=== PATIENT | female | born 1975 | race African-American/Black ===

== ENCOUNTER 2019-03-04 08:45 | Day surgery (SDC) | payer OTHER ==
--- NOTE | 2019-03-03 21:34 | PDGENHP ---
History and Physical - Chief Complaint RIGHT HIP PAIN - History of Present Illness Diagnosis: 1. 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 Bilateral~Hip Dyplasia (RIGHT symptomatic) HISTORY OF PRESENT ILLNESS: Laylais a~43 y.o.~~~active~female~who I have had the pleasure to consult on today.~I have enjoyed meeting her.~Jaelyn~lives in [place].~~Laylaworks as a triage nurse.~~She~is ;~she~has 2~children (7 and 5 yo).~~Laylaenjoys travel, playing with her kids, visiting [place] [place], going to the gym. Marisa's~right~hip pain started 2 years, with~little~recalled trauma or injury~( increased her activity level, weight lifting with her education trainer), and with~little~previous complaints~(while ).~Laylahas~a known history of hip dysplasia -- diagnosed by Dr. Irving May 2018~and referred to us for further surgical treatment. Presentation today is of~posterior~right~hip pain deep inside, sometimes C- shaped. ~The hip~does~wake her~at night and~does not~click and catch on~her. Sitting~can be a real struggle~for her.~Layladoes~report suffering from lower back pain episodes very rarely.~ Laylahas~participated in physical therapy x 6-7 months in 2017~and~has~tried other conservative measures including hip~steroid~injections~(x2 or 3, given to her by Dr. Powell at [facility], gave her 50% relief for maybe 3 weeks maximum)~.~ She~has~received sufficient symptomatic improvement. Marisa~has~utilized medication for pain management, including NSAID~and Medrol taper.~Laylahas used medication intermittently since symptom onset and 3 steroid tapers.~ Layladenies issues with the left~hip, but does have L heel pain.~~ Laylaunderstands that~jaelyn~has a hip and pelvis problem which should be researched and wishes to get a better understanding of~her~hip status, followed by an establishment of a treatment strategy, hoping~jaelyn~would be able to get back to~her~well being active life. History: Past medical history:~~ Patient~~has no past medical history on file. Relevant familial history:~None which is relevant~ Past surgical history:~ No. Surgery Anesthesia Year Outcome 1 Myomectomy x3 General 2009 most recent Good 2 x2 Epidural 2013 most recent Good Marisa~denies problematic issues with general anesthesia in the past. I have reviewed, verified and agree with the past medical, surgical, family and social history. Current Medications:~currently has no medications in their medication list. ALLERGIES:~has no allergies on file. Objective: Physical Examination: Laylais 5~feet~2~inches tall and weighs~177.8~Lbs, BMI 32.5.~Laylais AAO x3; she~is well-nourished, in NAD. Skin is warm and dry. ~Breathing is non-labored. ~CV with RRR by pulse. Abdomen is soft, NTND. Currently,~she~walks with a~normal~gait. Trendelenburg sign is~negative~and proprioception~is reduced,~both~sides. She~presents~with mild~signs of joint laxity.~Beightons Score:~5 (knees, elbows , R pinky) Lower spine examination is~negative~for sciatic or femoral nerve irritation with negative~SLR &~femoral stretch tests. Range of motion of the spine is normal~for flexion, extension, and rotations,~with no~associated pain. Strength, Sensation and pulses are~normal -~bilaterally Ankles and knees exams are~normal~and~no~mal-alignment is evident.~ She~has~no leg length discrepancy. Thigh circumference is~symmetric~with no evidence for muscle atrophy~on both~ sides. Hip ROM (degrees):~Apprehension due to pain FL ER At 90~hip FL IR At 90~hip FL AB AD EX IR Neutral hip ER Neutral hip R 95 25(pain) 40(pain) 30 5 5 45 35 L 95 30(apprehension) 35 (apprehension) 35 5 5 45 10 Specific hip and pelvis tests: Impingement Test MAZIN Roll Add. Longus R +++ +++ Negative Negative L Negative ++ Negative Negative Glut. Med ITB Posterior Imp R +++ 5/5 strength +++ 5/5 strength Negative L Negative 5/5 strength Negative 5/5 strength Negative Squeeze test measured~strong Bony Symphysis pubis is~painful~to touch while concentric activity of the rectus abdominis, does not~produce pain at its insertion. Ilio Psos specific tests are~positive for pain during cycling for~the right hip~ and remarkable for painful catch HF has~pain~both hips. Lateral, posterior~capsule tenderness R side Greater trochanteric burse is~pain free~on both hips. Piriformis tests: FAIR is~negative,~with no~local signs of neuritis related to sciatic nerve. SIJs examination is~normal~with~normal~MAZIN in relation and local tenderness. Hamstrings tests are~negative~tendinopathy both hips. On a daily basis, the following percentages reflect~Marisa's overall total pain: Deep hip:~100% Imaging: Radiology studies which I~have personally reviewed, analyzed and measured are below: XR: AP of the hip and pelvis: Performed in a~good~technique Coccyx to pubic symphysis distance~2.5~cm. 15~degrees caudal [place]~Lines are preserved. Minimal~Pathological signs are seen in the Symphysis Pubis.~ Minimal~Pathological signs are seen at the Ischial~tuberosity. ~ Specific measurements show:~ 0 deg WB (15 deg corrected) - L side measurements on 15 deg corrected obscured by hand/soft tissue NSA~ LCE Sourcil~Angle Sharp's angle Lat. Cam Lat. Pincer C.Over~sign Head~Coverage % ATDmm R 128 15(21) 13(9) 45(45) Neg Neg Neg 66% 18.9 L 133 17(20) 7(6) 43(45) Neg Neg Neg 69% 19.3 Pos. wall sign ISS NAD ~~Dysplasia Comments R Negative Negative 26.0~mm ++ L Negative Negative 26.6~mm ++ Sclerosis Sup. Lat. OA Cysts Joint Space-WBZ Joint Space-Medial R Negative Negative Negative 4.9~mm 3.5~mm L Negative Negative Negative 4.4~mm 3.6~mm X Table lateral: Anterior cam lesion is~seen~on both hips. Alpha Angle: ~ Right~62~degrees Left~63~degrees CT / 3D: 07/25/18 -~ Right hip: Lateral center edge angle: 23 degrees Anterior center edge angle: 55 degrees Equatorial acetabular version angle: 33 degrees Anteverted. Cranial acetabular version angle: 9 degrees Anteverted. Femoral neck shaft angle: 135 degrees Femoral neck version angle: 5 degrees retroverted Femoral shaft torsion angle: 17 degrees (medial/internal rotation) Left hip: Lateral center edge angle: 28 degrees Anterior center edge angle: 49 degrees Equatorial acetabular version angle: 33 degrees Anteverted. Cranial acetabular version angle: 16 degrees Anteverted. Femoral neck shaft angle: 136 degrees Femoral neck version angle: 9 degrees retroverted Femoral shaft torsion angle: 24 degrees (medial/internal rotation) Impression and plan:~ Marisa~is a~43 y.o.~active female~suffering from~Bilateral~Hip Dyplasia (RIGHT symptomatic)~and~Femoroacetabular impingement (KIM)~Cam type~causing significant disability to~her~and altering~her~sport and life activities. Physical examination, imaging, and~her~story correspond with the diagnosis mentioned above. I explained that hip dysplasia is a condition wherein the hip joint has excessive play~and instability due to a variety of factors, including the depth and adequacy of the socket, the orientation of the femur bone, and ligament laxity around the hip joint. Dysplasia ranges in severity from borderline to alexsander, with treatment options being specific to the specific nature of the problem. Left untreated, the instability in the hip joint can cause progressive tearing of the labrum and deterioration of the surface cartilage, ultimately resulting in progressive osteoarthritis of the hip. I explained that femoroacetabular impingement (KIM - Cam type) arises due to a bony or soft tissue conflict between the femur (ball) and acetabulum (socket) caused by an abnormality in the shape of the femoral head and neck. Over time, repetitive impingement can result in damage to the labrum and adjacent surface cartilage within the socket, ultimately giving rise to progressive osteoarthritis of the hip. I explained that although a labral tear can be a source of pain, it is rarely the root of the problem and typically occurs secondary to an underlying abnormality in the shape and mechanics of the hip joint. I reviewed conservative treatment options for Dysplasia and KIM including activity modification to avoid positions of impingement or instability, physical therapy, non-steroidal anti-inflammatory medications, and various injections (corticosteroid and PRP) aimed at reducing inflammation in the hip joint or/and preventing dynamic instability and impingement. PRP injections may promote healing and reduce symptoms in certain cases but it will not repair chronically damaged tissue. Although these measures may help to buy time~and reduce current level of symptoms, they are not a definitive solution to the problem given the underlying abnormality in the shape of the hip joint. Patients who have failed conservative management and continue to experience symptoms are candidates for definitive surgical treatment, which may consist of hip arthroscopy alone or in combination with more invasive bony realignment procedures of the hip socket and/or femur called periacetabular osteotomy (STEVEN) or derotational femoral osteotomy (DFO). Hip arthroscopy typically includes treating the labrum with either repair or reconstruction of the torn labrum; as well as addressing the underlying abnormalities by restoring the normal shape to the hip joint. If the cartilage is damaged a Microfracture surgical procedure may also be necessary to help stimulate the growth of fibrocartilage. If a patient requires a labral reconstruction or a Microfracture, the initial rehabilitation from the surgery may take longer, but the development technician results are typically favorable. I reviewed the technical aspects of periacetabular osteotomy (STEVEN) including risks, benefits, and expected course of recovery. Marisa understands that STEVEN is an inpatient procedure carried out through two medium sized incisions on the front and back of the hip joint. The hip socket is cut, realigned, and stabilized with 2 3 internal screws. Risks include infection, bleeding, injury to nearby nerves or vessels, stiffness, persistent pain, instability, failure of bony healing, implant related complications, and venous thromboembolic disease. Rarely, revision surgery may be required to address these problems. Risks, potential complications, side effects and recovery from surgical procedure were discussed in length. We explained how this surgery is an open procedure, and though patients tend to do well in the long-term, it involves significant pain in the first 2-4 weeks post-op and a rather lengthy rehab. Overall recovery takes approximately 6 12 months depending on the extent of damage and degree of repair. Marisa understands that she will undergo hip arthroscopy 1 week prior to the STEVEN to address damage inside the hip joint. Marisa understands that hip arthroscopy and STEVEN are two separate procedures that are best performed one week apart, with the arthroscopy commencing first to "tighten up" any pathology evident in the hip joint (labral repair, etc.) and the STEVEN open procedure occurring 7-10 days later to realign the acetabulum. We also discussed the possibility of THR as a pain relieving procedure with an easier recovery.~Considering her age and activity level THR can be a valid and very suitable option. After a long discussion Marisa say she~prefers~to avoid hip replacement due to her age and desired activity level, as well as the number of revisions that may be necessary in her lifetime. Marisa~will review the info presented. Marisa will bring her MRIs to the [facility] to be uploaded to our system~ so that we can review the health of her hip joint and confirm our surgical plan of scope/STEVEN is appropriate. Marisa~will talk with our vp integrity about possible surgery dates. Marisa~is happy with this plan. I have also supplied~her~with handouts, outlining the expected surgical treatment and rehab involved. I wish~Laylaall the best, ~~ Loraine Rivera MD History Information - Allergies/Home Medication List Allergies/Adverse Reactions: No Known Allergies Allergy (Verified 02/24/19 11:38) Home Medications: NK [No Known Home Meds] 02/24/19 [Last Taken Unknown] I have personally reviewed and updated: medical history - Social History Smoking Status: Never smoked Review of Systems Review of Systems: Physical Exam Physical Exam:
[2019-03-04] MEDS ORDERED: ceFAZolin 2 GM/DEXTROSE 100 ML IV ONE (09:02)
[2019-03-04] MEDS ORDERED: PREGABALIN 150 MG CAP PO ONE (09:02)
[2019-03-04] MEDS ORDERED: ACETAMINOPHEN 500 MG TAB PO ONE (09:02)
[2019-03-04] MEDS ORDERED: LR 1,000 ML IV ONE (09:03)
[2019-03-04] MEDS ORDERED: BUPIVACAINE/EPI 0.25% 30 ML SDV ONE (09:57)
[2019-03-04] MEDS ORDERED: EPINEPHrine 30 MG/30 ML MDV (0.1 MG/0.1 ML) ONE (09:57)
--- NOTE | 2019-03-04 10:15 | PDANEPAE ---
ANE Past Medical History - Cardiovascular History Hx Hypertension: No Hx Arrhythmias: No Hx Chest Pain: No Hx Coronary Artery / Peripheral Vascular Disease: No Hx CHF / Valvular Disease: No Hx Palpitations: No Cardiovascular History Comment: hx of rheumatic heart disease - Pulmonary History Hx COPD: No Hx Asthma/Reactive Airway Disease: No Hx Recent Upper Respiratory Infection: No Hx Oxygen in Use at Home: No Hx Sleep Apnea: No Sleep Apnea Screening Result - Last Documented: Negative - Neurologic History Hx Cerebrovascular Accident: No Hx Seizures: No Hx Dementia: No - Endocrine History Hx Diabetes: No - Renal History Hx Renal Disorders: No - Liver History Hx Hepatic Disorders: No - Neurological & Psychiatric Hx Hx Neurological and Psychiatric Disorders: No - Cancer History Hx Cancer: No - Congenital Disorder History Hx Congenital Disorders: Yes Congenital History Comment: hip dysplasia - GI History Hx Gastrointestinal Disorders: No - Other Health History Other Health History: none - Chronic Pain History Chronic Pain: Yes (bilateral hips) - Surgical History Prior Surgeries: myomectomy x3. x2 ANE Review of Systems Review of Systems: - Exercise capacity METS (RN): 4 METS ANE Patient History - Allergies Allergies/Adverse Reactions: No Known Allergies Allergy (Verified 02/24/19 11:38) - Home Medications Home Medications: NK [No Known Home Meds] 02/24/19 [Last Taken Unknown] - NPO status NPO Since - Liquids (Date): 03/03/19 NPO Since - Liquids (Time): 23:00 NPO Since - Solids (Date): 03/03/19 NPO Since - Solids (Time): 23:00 - Smoking Hx Smoking Status: Never smoked - Family Anes Hx Family Hx Anesthesia Complications: none ANE Labs/Vital Signs - Vital Signs Blood Pressure: 116/72 Heart Rate: 56 Respiratory Rate: 16 O2 Sat (%): 98 Height: 158.75 cm Weight: 76.657 kg ANE Physical Exam - Airway Mallampati Score: Class 1 - ASA Status ASA Status: I ANE Anesthesia Plan Anesthesia Plan: general endotracheal anesthesia, GA w LMA
[2019-03-04] MEDS ORDERED: MIDAZOLAM 2 MG/2 ML VIAL ONE (10:27)
[2019-03-04] MEDS ORDERED: fentaNYL 100 MCG/2 ML INJ ONE ×2 (10:27→15:31)
[2019-03-04] MEDS ORDERED: PROPOFOL 200 MG/20 ML VIAL ONE (10:28)
[2019-03-04] MEDS ORDERED: METOCLOPRAMIDE 10 MG/2 ML VIAL ONE (10:28)
[2019-03-04] MEDS ORDERED: ONDANSETRON 4 MG/2 ML VIAL ONE (10:28)
[2019-03-04] MEDS ORDERED: LIDOCAINE 2% JELLY 6 ML TOPICAL SYR ONE (11:54)
[2019-03-04] MEDS ORDERED: LR 500 ML IV PRN (15:17)
[2019-03-04] MEDS ORDERED: NALOXONE HCL 0.4 MG/ML INJ IVP PRN (15:17)
[2019-03-04] MEDS ORDERED: ACETAMINOPHEN 500 MG TAB PO PRN (15:17)
[2019-03-04] MEDS ORDERED: MEPERIDINE 25 MG/0.5 ML AMP IVP PRN (15:17)
[2019-03-04] MEDS ORDERED: fentaNYL 100 MCG/2 ML INJ IVP PRN (15:17)
--- NOTE | 2019-03-04 15:19 | POSTANESTH ---
Post Anesthetic Evaluation Cardiovascular Status: Normal, Stable Respiratory Status: Normal, Stable Level of Consciousness/Mental Status: Can Participate in Eval Pain Control: Adequate, Prn Tx Ordered Nausea/Vomiting Control: Adequate, Prn Tx Ordered Complications Possibly Related to Anesthesia: None Noted
[2019-03-04 16:47] VITALS: BP 112/73
== END 2019-03-04 17:05 | disposition home or self-care (01) ==
LOC: FSGY 08:45
PROVIDERS: ATTEND Orthopaedic Surgery Sports Medicine
PROC: 0SQ94ZZ Repair Right Hip Joint, Percutaneous Endoscopic Approach (ICD-10-PCS; principal; 2019-03-04 10:15)
PROC: 0SB94ZZ Excision of Right Hip Joint, Percutaneous Endoscopic Approach (ICD-10-PCS; principal; 2019-03-04 10:15)
DX: M25.851 Other specified joint disorders, right hip (principal); Q65.89 Other specified congenital deformities of hip
CPT/HCPCS: C1713; J0171; J0690; J2250; J2405; J2704; J2765; J3010

== ENCOUNTER 2019-03-11 06:04 | Inpatient (IN) | payer OTHER ==
--- NOTE | 2019-03-10 21:19 | PDGENHP ---
History and Physical - Chief Complaint RIGHT HIP PAIN - History of Present Illness Diagnosis: 1. 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 Bilateral~Hip Dyplasia (RIGHT symptomatic) HISTORY OF PRESENT ILLNESS: Laylais a~43 y.o.~~~active~female~who I have had the pleasure to consult on today.~I have enjoyed meeting her.~Jaelyn~lives in [place].~~Laylaworks as a triage nurse.~~She~is ;~she~has 2~children (7 and 5 yo).~~Laylaenjoys travel, playing with her kids, visiting [place], going to the gym. Marisa's~right~hip pain started 2 years, with~little~recalled trauma or injury~( increased her activity level, weight lifting with her personal care worker), and with~little~previous complaints~(while ).~Laylahas~a known history of hip dysplasia -- diagnosed by Dr. Irving May 2018~and referred to us for further surgical treatment. Presentation today is of~posterior~right~hip pain deep inside, sometimes C- shaped. ~The hip~does~wake her~at night and~does not~click and catch on~her. Sitting~can be a real struggle~for her.~Layladoes~report suffering from lower back pain episodes very rarely.~ Laylahas~participated in physical therapy x 6-7 months in 2017~and~has~tried other conservative measures including hip~steroid~injections~(x2 or 3, given to her by Dr. Powell at [facility], gave her 50% relief for maybe 3 weeks maximum)~.~ She~has~received sufficient symptomatic improvement. Marisa~has~utilized medication for pain management, including NSAID~and Medrol taper.~Laylahas used medication intermittently since symptom onset and 3 steroid tapers.~ Layladenies issues with the left~hip, but does have L heel pain.~~ Laylaunderstands that~jaelyn~has a hip and pelvis problem which should be researched and wishes to get a better understanding of~her~hip status, followed by an establishment of a treatment strategy, hoping~jaelyn~would be able to get back to~her~well being active life. History: Past medical history:~~ Patient~~has no past medical history on file. Relevant familial history:~None which is relevant~ Past surgical history:~ No. Surgery Anesthesia Year Outcome 1 Myomectomy x3 General 2009 most recent Good 2 x2 Epidural 2013 most recent Good Marisa~denies problematic issues with general anesthesia in the past. I have reviewed, verified and agree with the past medical, surgical, family and social history. Current Medications:~currently has no medications in their medication list. ALLERGIES:~has no allergies on file. Objective: Physical Examination: Laylais 5~feet~2~inches tall and weighs~177.8~Lbs, BMI 32.5.~Laylais AAO x3; she~is well-nourished, in NAD. Skin is warm and dry. ~Breathing is non-labored. ~CV with RRR by pulse. Abdomen is soft, NTND. Currently,~she~walks with a~normal~gait. Trendelenburg sign is~negative~and proprioception~is reduced,~both~sides. She~presents~with mild~signs of joint laxity.~Beightons Score:~5 (knees, elbows , R pinky) Lower spine examination is~negative~for sciatic or femoral nerve irritation with negative~SLR &~femoral stretch tests. Range of motion of the spine is normal~for flexion, extension, and rotations,~with no~associated pain. Strength, Sensation and pulses are~normal -~bilaterally Ankles and knees exams are~normal~and~no~mal-alignment is evident.~ She~has~no leg length discrepancy. Thigh circumference is~symmetric~with no evidence for muscle atrophy~on both~ sides. Hip ROM (degrees):~Apprehension due to pain FL ER At 90~hip FL IR At 90~hip FL AB AD EX IR Neutral hip ER Neutral hip R 95 25(pain) 40(pain) 30 5 5 45 35 L 95 30(apprehension) 35 (apprehension) 35 5 5 45 10 Specific hip and pelvis tests: Impingement Test MAZIN Roll Add. Longus R +++ +++ Negative Negative L Negative ++ Negative Negative Glut. Med ITB Posterior Imp R +++ 5/5 strength +++ 5/5 strength Negative L Negative 5/5 strength Negative 5/5 strength Negative Squeeze test measured~strong Bony Symphysis pubis is~painful~to touch while concentric activity of the rectus abdominis, does not~produce pain at its insertion. Ilio Psos specific tests are~positive for pain during cycling for~the right hip~ and remarkable for painful catch HF has~pain~both hips. Lateral, posterior~capsule tenderness R side Greater trochanteric burse is~pain free~on both hips. Piriformis tests: FAIR is~negative,~with no~local signs of neuritis related to sciatic nerve. SIJs examination is~normal~with~normal~MAZIN in relation and local tenderness. Hamstrings tests are~negative~tendinopathy both hips. On a daily basis, the following percentages reflect~Marisa's overall total pain: Deep hip:~100% Imaging: Radiology studies which I~have personally reviewed, analyzed and measured are below: XR: AP of the hip and pelvis: Performed in a~good~technique Coccyx to pubic symphysis distance~2.5~cm. 15~degrees caudal [place]~Lines are preserved. Minimal~Pathological signs are seen in the Symphysis Pubis.~ Minimal~Pathological signs are seen at the Ischial~tuberosity. ~ Specific measurements show:~ 0 deg WB (15 deg corrected) - L side measurements on 15 deg corrected obscured by hand/soft tissue NSA~ LCE Sourcil~Angle Sharp's angle Lat. Cam Lat. Pincer C.Over~sign Head~Coverage % ATDmm R 128 15(21) 13(9) 45(45) Neg Neg Neg 66% 18.9 L 133 17(20) 7(6) 43(45) Neg Neg Neg 69% 19.3 Pos. wall sign ISS NAD ~~Dysplasia Comments R Negative Negative 26.0~mm ++ L Negative Negative 26.6~mm ++ Sclerosis Sup. Lat. OA Cysts Joint Space-WBZ Joint Space-Medial R Negative Negative Negative 4.9~mm 3.5~mm L Negative Negative Negative 4.4~mm 3.6~mm X Table lateral: Anterior cam lesion is~seen~on both hips. Alpha Angle: ~ Right~62~degrees Left~63~degrees CT / 3D: 07/25/18 -~ Right hip: Lateral center edge angle: 23 degrees Anterior center edge angle: 55 degrees Equatorial acetabular version angle: 33 degrees Anteverted. Cranial acetabular version angle: 9 degrees Anteverted. Femoral neck shaft angle: 135 degrees Femoral neck version angle: 5 degrees retroverted Femoral shaft torsion angle: 17 degrees (medial/internal rotation) Left hip: Lateral center edge angle: 28 degrees Anterior center edge angle: 49 degrees Equatorial acetabular version angle: 33 degrees Anteverted. Cranial acetabular version angle: 16 degrees Anteverted. Femoral neck shaft angle: 136 degrees Femoral neck version angle: 9 degrees retroverted Femoral shaft torsion angle: 24 degrees (medial/internal rotation) Impression and plan:~ Marisa~is a~43 y.o.~active female~suffering from~Bilateral~Hip Dyplasia (RIGHT symptomatic)~and~Femoroacetabular impingement (KIM)~Cam type~causing significant disability to~her~and altering~her~sport and life activities. Physical examination, imaging, and~her~story correspond with the diagnosis mentioned above. I explained that hip dysplasia is a condition wherein the hip joint has excessive play~and instability due to a variety of factors, including the depth and adequacy of the socket, the orientation of the femur bone, and ligament laxity around the hip joint. Dysplasia ranges in severity from borderline to alexsander, with treatment options being specific to the specific nature of the problem. Left untreated, the instability in the hip joint can cause progressive tearing of the labrum and deterioration of the surface cartilage, ultimately resulting in progressive osteoarthritis of the hip. I explained that femoroacetabular impingement (KIM - Cam type) arises due to a bony or soft tissue conflict between the femur (ball) and acetabulum (socket) caused by an abnormality in the shape of the femoral head and neck. Over time, repetitive impingement can result in damage to the labrum and adjacent surface cartilage within the socket, ultimately giving rise to progressive osteoarthritis of the hip. I explained that although a labral tear can be a source of pain, it is rarely the root of the problem and typically occurs secondary to an underlying abnormality in the shape and mechanics of the hip joint. I reviewed conservative treatment options for Dysplasia and KIM including activity modification to avoid positions of impingement or instability, physical therapy, non-steroidal anti-inflammatory medications, and various injections (corticosteroid and PRP) aimed at reducing inflammation in the hip joint or/and preventing dynamic instability and impingement. PRP injections may promote healing and reduce symptoms in certain cases but it will not repair chronically damaged tissue. Although these measures may help to buy time~and reduce current level of symptoms, they are not a definitive solution to the problem given the underlying abnormality in the shape of the hip joint. Patients who have failed conservative management and continue to experience symptoms are candidates for definitive surgical treatment, which may consist of hip arthroscopy alone or in combination with more invasive bony realignment procedures of the hip socket and/or femur called periacetabular osteotomy (STEVEN) or derotational femoral osteotomy (DFO). Hip arthroscopy typically includes treating the labrum with either repair or reconstruction of the torn labrum; as well as addressing the underlying abnormalities by restoring the normal shape to the hip joint. If the cartilage is damaged a Microfracture surgical procedure may also be necessary to help stimulate the growth of fibrocartilage. If a patient requires a labral reconstruction or a Microfracture, the initial rehabilitation from the surgery may take longer, but the ferry terminal supervisor results are typically favorable. I reviewed the technical aspects of periacetabular osteotomy (STEVEN) including risks, benefits, and expected course of recovery. Marisa understands that STEVEN is an inpatient procedure carried out through two medium sized incisions on the front and back of the hip joint. The hip socket is cut, realigned, and stabilized with 2 3 internal screws. Risks include infection, bleeding, injury to nearby nerves or vessels, stiffness, persistent pain, instability, failure of bony healing, implant related complications, and venous thromboembolic disease. Rarely, revision surgery may be required to address these problems. Risks, potential complications, side effects and recovery from surgical procedure were discussed in length. We explained how this surgery is an open procedure, and though patients tend to do well in the long-term, it involves significant pain in the first 2-4 weeks post-op and a rather lengthy rehab. Overall recovery takes approximately 6 12 months depending on the extent of damage and degree of repair. Marisa understands that she will undergo hip arthroscopy 1 week prior to the STEVEN to address damage inside the hip joint. Marisa understands that hip arthroscopy and STEVEN are two separate procedures that are best performed one week apart, with the arthroscopy commencing first to "tighten up" any pathology evident in the hip joint (labral repair, etc.) and the STEVEN open procedure occurring 7-10 days later to realign the acetabulum. We also discussed the possibility of THR as a pain relieving procedure with an easier recovery.~Considering her age and activity level THR can be a valid and very suitable option. After a long discussion Marisa say she~prefers~to avoid hip replacement due to her age and desired activity level, as well as the number of revisions that may be necessary in her lifetime. Marisa~will review the info presented. Marisa will bring her MRIs to the [facility] to be uploaded to our system~ so that we can review the health of her hip joint and confirm our surgical plan of scope/STEVEN is appropriate. Marisa~will talk with our rn medical surgical about possible surgery dates. Marisa~is happy with this plan. I have also supplied~her~with handouts, outlining the expected surgical treatment and rehab involved. I wish~Laylaall the best, ~~ Loraine Rivera MD History Information - Allergies/Home Medication List Allergies/Adverse Reactions: No Known Allergies Allergy (Verified 02/24/19 11:38) Home Medications: Naproxen Sodium [Aleve 220 MG (*)] 220 mg PO BID 03/06/19 [Last Taken Unknown] oxyCODONE HCL/ACETAMINOPHEN [Percocet 5-325 mg Tablet] 1 each PO Q4 PRN [Last Taken Unknown] I have personally reviewed and updated: medical history - Social History Smoking Status: Never smoked Review of Systems Review of Systems: Physical Exam Physical Exam:
[2019-03-11] MEDS ORDERED: TRANEXAMIC ACID 1,000 MG in NS 100 ML IV ONE (06:12)
[2019-03-11] MEDS ORDERED: SCOPOLAMINE HYDROBROMIDE 1 MG/3 DAYS PATCH TD ONE (06:12)
[2019-03-11] MEDS ORDERED: ceFAZolin 2 GM/DEXTROSE 100 ML IV ONE (06:12)
[2019-03-11] MEDS ORDERED: PREGABALIN 150 MG CAP PO ONE (06:12)
[2019-03-11] MEDS ORDERED: LR 1,000 ML IV ONE (06:12)
[2019-03-11] MEDS ORDERED: ACETAMINOPHEN 500 MG TAB PO ONE (06:12)
[2019-03-11] MEDS ORDERED: HYDROmorphONE/DILAUDID 2 MG/ML INJ ONE (07:04)
[2019-03-11] MEDS ORDERED: fentaNYL 100 MCG/2 ML INJ ONE (07:05)
[2019-03-11] MEDS ORDERED: PROPOFOL 200 MG/20 ML VIAL ONE (07:05)
[2019-03-11] MEDS ORDERED: CITRATE DEXTROSE SOLN 500 ML BAG ONE (07:07)
[2019-03-11] MEDS ORDERED: PETROLAT,WHT/MIN OIL/SOD CHL 3.5 GM OPHT.OINT ONE (07:07)
[2019-03-11] MEDS ORDERED: morphINE PF 5 MG/10 ML INJ ONE (07:12)
--- NOTE | 2019-03-11 07:15 | PDANEPAE ---
ANE Past Medical History - Cardiovascular History Hx Hypertension: No Hx Arrhythmias: No Hx Chest Pain: No Hx Coronary Artery / Peripheral Vascular Disease: No Hx CHF / Valvular Disease: No Hx Palpitations: No Cardiovascular History Comment: hx of rheumatic heart disease - Pulmonary History Hx COPD: No Hx Asthma/Reactive Airway Disease: No Hx Recent Upper Respiratory Infection: No Hx Oxygen in Use at Home: No Hx Sleep Apnea: No Sleep Apnea Screening Result - Last Documented: Negative - Neurologic History Hx Cerebrovascular Accident: No Hx Seizures: No Hx Dementia: No - Endocrine History Hx Diabetes: No - Renal History Hx Renal Disorders: No - Liver History Hx Hepatic Disorders: No - Neurological & Psychiatric Hx Hx Neurological and Psychiatric Disorders: No - Cancer History Hx Cancer: No - Congenital Disorder History Hx Congenital Disorders: Yes Congenital History Comment: hip dysplasia - GI History Hx Gastrointestinal Disorders: No - Other Health History Other Health History: R acetabular impingement. - Chronic Pain History Chronic Pain: Yes (bilateral hips) - Surgical History Prior Surgeries: R hip arthroscopy/femoroplasty 03/04/19. myomectomy x3. c- section x2 ANE Review of Systems Review of Systems: - Exercise capacity METS (RN): 4 METS ANE Patient History - Allergies Allergies/Adverse Reactions: No Known Allergies Allergy (Verified 02/24/19 11:38) - Home Medications Home Medications: Naproxen Sodium [Aleve 220 MG (*)] 220 mg PO BID 03/06/19 [Last Taken 03/07/19] oxyCODONE HCL/ACETAMINOPHEN [Percocet 5-325 mg Tablet] 1 each PO Q4 PRN [Last Taken 03/07/19] - NPO status NPO Since - Liquids (Date): 03/10/19 NPO Since - Solids (Date): 02/28/19 - Smoking Hx Smoking Status: Never smoked - Family Anes Hx Family Hx Anesthesia Complications: none ANE Labs/Vital Signs - Labs Result Diagrams: 03/11/19 07:00 - Vital Signs Blood Pressure: 105/59 Heart Rate: 65 Respiratory Rate: 15 O2 Sat (%): 97 Height: 158.75 cm Weight: 76.657 kg ANE Physical Exam - Airway Neck exam: FROM Mallampati Score: Class 1 Mouth exam: normal dental/mouth exam - Pulmonary Pulmonary: clear to auscultation - Cardiovascular Cardiovascular: regular rate and rhythym - ASA Status ASA Status: II ANE Anesthesia Plan Anesthesia Plan: general endotracheal anesthesia Regional Anesthesia: single shot NB, POPC/PSR
[2019-03-11] MEDS ORDERED: DEXAMETHASONE 4 MG/ML VIAL ONE (07:52)
[2019-03-11] MEDS ORDERED: ROCURONIUM 50 MG/5 ML VIAL ONE ×2 (08:09→08:32)
[2019-03-11] MEDS ORDERED: DEXMEDETOMIDINE HCL 400 MCG in NS 100 ML IV SCH (08:30)
[2019-03-11] MEDS ORDERED: ePHEDrine SULFATE 25 MG/5 ML SYR ONE ×2 (08:32→10:48)
[2019-03-11] MEDS ORDERED: PHENYLEPHRINE HCL 100 MCG/ML SYR ONE (08:32)
[2019-03-11] MEDS ORDERED: GLYCOPYRROLATE 0.2 MG/1 ML VIAL ONE ×2 (11:02→12:04)
[2019-03-11] MEDS ORDERED: ceFAZolin 1 GM VIAL ONE ×2 (11:22)
[2019-03-11] MEDS ORDERED: ONDANSETRON 4 MG/2 ML VIAL ONE (11:26)
[2019-03-11] MEDS ORDERED: NEOSTIGMINE METHYLSULFATE 10 MG/10 ML MDV ONE (11:58)
[2019-03-11] MEDS ORDERED: ONDANSETRON 4 MG/2 ML VIAL IVP PRN ×2 (12:02→13:18)
[2019-03-11] MEDS ORDERED: METOCLOPRAMIDE 10 MG/2 ML VIAL IVP PRN (12:02)
[2019-03-11] MEDS ORDERED: HYDROmorphONE/DILAUDID 1 MG/ML INJ IVP PRN (12:02)
[2019-03-11] MEDS ORDERED: NALOXONE HCL 0.4 MG/ML INJ IVP PRN ×2 (12:02→13:20)
[2019-03-11] MEDS ORDERED: LR 500 ML IV PRN (12:02)
[2019-03-11] MEDS ORDERED: DIAZEPAM 10 MG/2 ML SYR IVP PRN (12:02)
[2019-03-11] MEDS ORDERED: DEXAMETHASONE 4 MG/ML VIAL IVP PRN (12:02)
[2019-03-11] MEDS ORDERED: ALBUTEROL 3 ML DEYVIAL IH PRN (12:02)
[2019-03-11] MEDS ORDERED: fentaNYL 100 MCG/2 ML INJ IVP PRN (12:02)
[2019-03-11] MEDS ORDERED: PROMETHAZINE HCL 25 MG/ML INJ IVP PRN (12:02)
[2019-03-11] MEDS ORDERED: MEPERIDINE 25 MG/0.5 ML AMP IVP PRN (12:02)
[2019-03-11] MEDS ORDERED: PHENYLEPHRINE HCL 100 MCG/ML SYR IVP PRN (12:02)
[2019-03-11] MEDS ORDERED: CALCIUM CHLORIDE 1 GM/10 ML INJ ONE (12:13)
[2019-03-11] MEDS ORDERED: ONDANSETRON DISINTEGRATING 4 MG TAB PO PRN (13:18)
[2019-03-11] MEDS ORDERED: BISACODYL 10 MG SUPP PR PRN (13:18)
[2019-03-11] MEDS ORDERED: MAGNESIUM HYDROXIDE 30 ML UDCUP PO PRN (13:18)
[2019-03-11] MEDS ORDERED: LACTULOSE 20 GM/30 ML UDCUP PO PRN (13:18)
[2019-03-11] MEDS ORDERED: HYDROmorphONE/DILAUDID 6 MG/30 ML PCA IV PRN (13:20)
[2019-03-11] MEDS ORDERED: diphenhydrAMINE 25 MG CAP PO PRN (13:20)
[2019-03-11] MEDS ORDERED: oxyCODONE IR 15 MG TAB PO PRN (13:21)
--- NOTE | 2019-03-11 13:42 | PDMN ---
Medical Necessity Medical necessity: Pt meets inpt criteria per MD order and Musculoskeletal surgery GRG, periacetabular osteotomy, MCR IP only list. 43 y/o w/bilateral hip dysplasia (R symptomatic)/R acetabular impingement admitted for R STEVEN and post- op care, Dilaudid AUDIOMETRIST for pain, inpt AUTH#[id number].
[2019-03-11] MEDS: oxyCODONE IR 5 MG TAB PO SCH ×3 (15:23→22:14)
[2019-03-11] MEDS: NAPROXEN SODIUM 220 MG TAB PO SCH ×2 (17:20→22:12)
[2019-03-11] MEDS: NS 1,000 ML IV SCH (17:21)
--- NOTE | 2019-03-11 18:22 | SUROPNOTE ---
SHERYL Operative Report - Surgery Surgery was performed at [facility] on~03/11/19~ Diagnosis:~Right 1. Hip Acetabular Dysplasia ~ Operation: Right~Geri Acetabular Osteotomy (STEVEN) Surgeon: Rene Mcgraw MD Marine Reporter:~~Mayelin Mendoza MD Anesthetic: General + spinal Procedure: General anesthetic. Antibiotics given. Cell saver in use. Fluoroscopy. Phase 1: Position lateral, diagonal skin incision between ischial tuberosity and greater trochanter as for posterior hip approach. Blunt split of glut max fibers. Identification of fat pad overlying sciatic nerve. Exposure of sciatic nerve under fat pad, gently retracting it away-medially to ischial tuberosity. Exposure of subcotoloid fossa proximal to short rotators. UsingPrecision saw, osteotomy of subcotoloid hwinf30-53 mm short of (lateral to) thesciatic notch. Closure of lateral cut. Patient is turned supine. Phase 2: Skin incision just distal to ASIS. Using diathermy the iliac spine was exposed and inguinal ligament + Sartorious were retracted medially, taking the LFCN with them, protecting it. Inner ilium was dissected from iliacus muscle bluntly , with a cob and swab. Dissection continued towards lateral superior ramus pubis. Using fluoroscopy an osteotomy of lateral superior ramus, just medial to tear drop, was performed with~curved fish mouth osteotome. Phase 3: Osteotomy lines of the ilium were marked with diathermy as pre planned according to XR/CT and expected correction of acatabulum. 2 Shanz screws were drilled into central acetabular fragment, corresponding with planned correction angles, in order to mobilize central acetabular fragment after osteotomy is complete. ~Iliac osteotomy was performed with reciprocating saw and the main acetabular fragment was moved to realign weight bearing position. After confirmation of correction using fluoroscopy in AP and false profile planes, the fragment was fixed with 2-~5.5mm~~full threaded~screws~and 1 -~4mm~~full threaded~screw. Inguinal ligament and Sartorious were attached back to ASIS through drill holes. Incision was closed according to soft tissue layers. Skin was closed with~subdermal Monocryl. Final fluoro shots were obtained to confirm position/correction. After surgery~Marisa~moved both lower limbs and had no NV motor compromise. Specimen - none Bleeding -~1300ml Complication - none Evaluation under anesthesia: IR at 90 degrees hip flexion prior to STEVEN was~45~degrees and after STEVEN was 10-15 ~degrees. Bleeding:~1300~cc into cell-saver, 540~of blood products were returned to patient. Post op instructions: 1.~Non~weight bearing crutches for 4~weeks 2. Continuous SCD 3. Aspirin 81 mg X1 day starting POD1 4. Avoid hip flexion past 90 and hip External rotation. 5. PT according to my recommendations at follow up visit Kind regards, Dr. Rene Mcgraw .
[2019-03-11] MEDS: SENNOSIDES/DOCUSATE SODIUM TAB PO SCH (21:11)
[2019-03-12] MEDS: oxyCODONE IR 5 MG TAB PO SCH ×7 (02:06→22:09)
[2019-03-12] MEDS: NS 1,000 ML IV SCH (04:22)
[2019-03-12] MEDS: NAPROXEN SODIUM 220 MG TAB PO SCH ×3 (07:53→22:07)
[2019-03-12] MEDS: SENNOSIDES/DOCUSATE SODIUM TAB PO SCH ×2 (07:53→20:44)
[2019-03-12] MEDS: POLYETHYLENE GLYCOL 3350 17 GM PKT PO PRN (07:53)
[2019-03-12] MEDS: PANTOPRAZOLE SODIUM 40 MG TAB PO SCH (07:54)
[2019-03-12] MEDS: ACETAMINOPHEN 325 MG TAB PO PRN (07:54)
--- NOTE | 2019-03-12 08:47 | PDPAINCON ---
Pain Management Consultation Patient referred by : Colleen Russell - Subjective Pain is: low, well controlled Side effects include: itchiness (moderate) - Objective Technique: spinal opioid (morphine) Sensory and motor exam: block has resolved, no apparent ill effects Vital signs: stable - Assessment/Plan Assessment/Plan: pain well-controlled, continue current mgmt (POD 1 s/p STEVEN with IT morphine. Pain well controlled with STEWARD/STEWARDESS SECOND and PO analgesics at this time. No complications noted.)
--- NOTE | 2019-03-12 14:59 | PDCONSULT ---
Judicial Assistant Note: Patient is a 43-year-old female past medical history of hip dysplasia who was admitted for a periacetabular osteotomy. She is currently postop day 1 status post periacetabular osteotomy. He says she is tired but otherwise is doing well. Her pain is well managed currently with medications being provided. In regards to her hip pain appears that started about 2 years ago. She had no inciting trauma and had few previous complaints before that. Her pain is in her posterior right hip. The pain does wake her at night. Pain and was worse with sitting. She has tried physical therapy along with medications along with steroid tapers and injections all of which have been minimally effective. Past medical history Hip dysplasia Past surgical history Myomectomy Social history No alcohol tobacco or illicit drug use Family history Noncontributory Allergies No known drug allergies Medications Occasional naproxen Vital signs Blood pressure 102/53, heart rate 69, respirations 17, oxygen saturation 94% on room air, temperature 37.1 degrees C. Examination general well-nourished well-developed female in no acute distress HEENT PERRLA mucous membranes moist pink and acyanotic head is atraumatic normocephalic Lungs are clear to auscultation bilaterally Cardiovascular rather are regular rhythm and rate no murmurs rubs or gallops Abdomen soft nontender nondistended in all 4 quadrants no organomegaly Extremities no clubbing cyanosis edema or calf pain Neuro cranial nerves 2-12 were grossly intact with no focal neurologic deficits Skin no lesions rashes or ecchymosis Lymph no lymphadenopathy Psych-normal affect and mood appropriate Assessment plan 43-year-old female admitted for periacetabular osteotomy Hip dysplasia- postop day 1 status post periacetabular osteotomy -pain management -DVT prophylaxis per Ortho -PT OT Postop blood loss anemia- hemoglobin down to 10 and 30, from 12 in 36. Patient denies any dizziness or other symptoms. Will continue to monitor and if needed transfuse packed red blood cells Hypotension- likely orthostatic hypotension in the setting of postop blood loss anemia. If the patient becomes symptomatic will treat with fluid boluses and transfusion if needed. Prophylaxis- per Ortho Dispo- inpatient for periacetabular osteotomy
--- NOTE | 2019-03-12 15:24 | ASMTCMCOM ---
CM Note CM Note Notes: Pt had planned surgery for dysplasia, pt is a nurse. Pt resides with spouse and children. PT/OT rec home. Anticipate pt will d/c when medically stable with family support and follow MD rec for outpatient PT. No CM d/c needs identified. CM available for changes/needs. Date Signed: 03/12/2019 03:23 PM Electronically Signed By:KYLE Alonzo
--- NOTE | 2019-03-12 17:18 | SOAPPROG ---
SOAP Progress Note Assessment/Plan: Assessment: 43 yo F POD#1 s/p R STEVEN, doing well post-operatively. 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 Mcgraw prior to discharge 03/12/19 17:15 Subjective: Pt reports pain well controlled, no CP/SOB, overall feels well. Objective: Vital Signs Temp Pulse Resp BP Pulse Ox 37.2 C 93 18 103/58 L 95 03/12/19 15:51 03/12/19 15:51 03/12/19 15:51 03/12/19 15:51 03/12/19 15:51 Laboratory Results 03/12/19 04:49 03/12/19 04:49 03/11/19 03/12/19 03/13/19 05:59 05:59 05:59 Intake Total 6825 300 Output Total 5275 1000 Balance 1550 -700 Gen: NAD, pleasant R hip dressings c/d/i No lateral thigh numbness 5/5 TA, GSC, EHL SILT throughout foot ICD10 Worksheet Patient Problems: Problems Problem Status Onset Hip dysplasia Acute Hip dysplasia Acute - ICD10 Problem Qualifiers (1) Hip dysplasia
[2019-03-12] MEDS: DIAZEPAM 2 MG TAB PO PRN (20:44)
[2019-03-13] MEDS: oxyCODONE IR 5 MG TAB PO SCH ×6 (02:06→21:40)
[2019-03-13] MEDS: POLYETHYLENE GLYCOL 3350 17 GM PKT PO PRN (05:50)
[2019-03-13] MEDS: NAPROXEN SODIUM 220 MG TAB PO SCH ×3 (09:53→21:40)
[2019-03-13] MEDS: PANTOPRAZOLE SODIUM 40 MG TAB PO SCH (09:53)
[2019-03-13] MEDS: SENNOSIDES/DOCUSATE SODIUM TAB PO SCH ×2 (09:53→21:41)
[2019-03-13] MEDS: ACETAMINOPHEN 325 MG TAB PO PRN (13:39)
--- NOTE | 2019-03-13 13:50 | HOSPPROG ---
Hospitalist Progress Note Assessment/Plan: 43 year old female with hip dysplasia admitted for STEVEN Hip dysplasia- post op day 2 status post STEVEN. management per ortho -transition to po pain meds -dvt prophy -OOB -pt/ot Post op blood loss anemia- recheck H/H in am. mild hypotension, but no orthostasis. vitals stable Hypotension- asympatomatic, if develops dizziness or worsens given fluids, check H/H Prophylaxis- asa per ortho Dispo- remain inp for STEVEN. Subjective: pain manageable, very tired. some nausea Objective: Vital Signs Temp Pulse Resp BP Pulse Ox 37.0 C 82 14 91/57 L 94 03/13/19 12:00 03/13/19 12:00 03/13/19 12:00 03/13/19 12:00 03/13/19 12:00 Laboratory Results 03/12/19 04:49 03/12/19 04:49 03/12/19 03/13/19 03/14/19 05:59 05:59 05:59 Intake Total 6825 1450 350 Output Total 5275 4450 Balance 1550 -3000 350 - Physical Exam Constitutional: no apparent distress, appears nourished, not in pain Eyes: PERRL, anicteric sclera, EOMI Ears, Nose, Mouth, Throat: moist mucous membranes, hearing normal, ears appear normal, no oral mucosal ulcers Cardiovascular: regular rate and rhythym, no murmur, rub, or gallop Respiratory: no respiratory distress, no rales or rhonchi, clear to auscultation Gastrointestinal: normoactive bowel sounds, soft, non-tender abdomen, no palpable masses Genitourinary: no bladder fullness, no bladder tenderness, no renal bruits Skin: no rashes or abrasions, no fluctuance, no induration Musculoskeletal: full muscle strength, no muscle tenderness, normal joint ROM Neurologic: AAOx3, sensation intact bilaterally Psychiatric: interacting appropriately, not anxious, not encephalopathic, thought process linear Lymph, Heme, Immunologic: no cervical LAD, no supraclavicular LAD ICD10 Worksheet Patient Problems: Problems Problem Status Onset Hip dysplasia Acute Hip dysplasia Acute
[2019-03-13] MEDS: ASPIRIN EC 81 MG TAB PO SCH (16:21)
--- NOTE | 2019-03-13 20:24 | SOAPPROG ---
SOAP Progress Note Assessment/Plan: Assessment: Plan: 03/13/19 20:23 POD 2, does extremely well, minimum pain and well mobile. NV intact. Will be ready to go tomorrow. Dr Mcgraw Objective: Vital Signs Temp Pulse Resp BP Pulse Ox 37.1 C 82 16 92/55 L 95 03/13/19 19:50 03/13/19 19:50 03/13/19 19:50 03/13/19 19:50 03/13/19 19:50 Laboratory Results 03/12/19 04:49 03/12/19 04:49 03/12/19 03/13/19 03/14/19 05:59 05:59 05:59 Intake Total 2316 1450 1850 Output Total 0311 3640 Balance 1550 -3000 1850 ICD10 Worksheet Patient Problems: Problems Problem Status Onset Hip dysplasia Acute Hip dysplasia Acute
[2019-03-14] MEDS: oxyCODONE IR 5 MG TAB PO SCH ×6 (01:52→21:46)
[2019-03-14] MEDS: DIAZEPAM 2 MG TAB PO PRN ×3 (02:11→19:50)
[2019-03-14 05:04] LABS: PLATELET COUNT 283 10^3/uL (150-400)
[2019-03-14] MEDS: NAPROXEN SODIUM 220 MG TAB PO SCH ×3 (08:48→21:46)
[2019-03-14] MEDS: PANTOPRAZOLE SODIUM 40 MG TAB PO SCH (08:48)
[2019-03-14] MEDS: SENNOSIDES/DOCUSATE SODIUM TAB PO SCH ×2 (08:48→19:52)
[2019-03-14] MEDS: ASPIRIN EC 81 MG TAB PO SCH (08:51)
--- NOTE | 2019-03-14 09:43 | HOSPPROG ---
Hospitalist Progress Note Assessment/Plan: 43 year old female with hip dysplasia admitted for STEVEN. First encounter, chart reviewed *Hip dysplasia -s/p STEVEN- *blurred vision -has a scopolamine patch in place -removed *anemia -post op *Hypotension- asymptomatic *Prophylaxis- asa per ortho *plan: dc per orthopedics, she is doing well Subjective: Marisa is feeling well except for some blurred vision. Objective: Vital Signs Temp Pulse Resp BP Pulse Ox 36.8 C 75 14 90/47 L 95 03/14/19 08:00 03/14/19 08:00 03/14/19 08:00 03/14/19 08:00 03/14/19 08:00 Laboratory Results 03/14/19 04:33 03/12/19 04:49 03/13/19 03/14/19 03/15/19 05:59 05:59 05:59 Intake Total 1450 1850 Output Total 4450 Balance -3000 1850 - Physical Exam Constitutional: appears nourished Eyes: PERRL Ears, Nose, Mouth, Throat: hearing normal Cardiovascular: regular rate and rhythym Respiratory: no respiratory distress Skin: warm, other (right hip with swelling) Neurologic: AAOx3 Psychiatric: interacting appropriately ICD10 Worksheet Patient Problems: Problems Problem Status Onset Hip dysplasia Acute Hip dysplasia Acute
--- NOTE | 2019-03-14 13:25 | SOAPPROG ---
SOAP Progress Note Assessment/Plan: Assessment: 3rd post op day Right Periacetabular Osteotomy Plan: Oxycodone Up with PT/OT: stairs SCDs/81mg aspirin home today or tomorrow once pelvis x-ray is cleared 03/14/19 13:25 Subjective: Marisa is doing well today. Her pain is managed with Oxycodone, she has been up with PT/OT and to the bathroom. She denies any cp, sob or nausea. She'd like to go home today or tomorrow. Objective: Vital Signs Temp Pulse Resp BP Pulse Ox 36.9 C 93 14 114/67 93 03/14/19 11:42 03/14/19 11:42 03/14/19 11:42 03/14/19 11:42 03/14/19 11:42 Laboratory Results 03/14/19 04:33 03/12/19 04:49 03/13/19 03/14/19 03/15/19 05:59 05:59 05:59 Intake Total 1450 1850 Output Total 4450 Balance -3000 1850 well appearing in NAD Right hip; dressings clean dry intact some ecchymosis and edema some thigh numbness NVI distally full ROM of foot and ankle - Pending Discharge Pending Discharge Within 24 Hours: Yes Pending Discharge Date: 03/15/19 Pending Discharge Time: 11:00 ICD10 Worksheet Patient Problems: Problems Problem Status Onset Hip dysplasia Acute Hip dysplasia Acute
[2019-03-14] MEDS: POLYETHYLENE GLYCOL 3350 17 GM PKT PO PRN (15:28)
--- NOTE | 2019-03-14 15:57 | ASMTCMCOM ---
CM Note CM Note Notes: D/c plan remains home with family support and follow MD rec for outpatient PT. No CM d/c needs identified. CM available for changes/needs. Date Signed: 03/14/2019 03:56 PM Electronically Signed By:KYLE Alonzo
[2019-03-15] MEDS: oxyCODONE IR 5 MG TAB PO SCH ×3 (02:07→12:14)
[2019-03-15 07:22] VITALS: BP 96/57
[2019-03-15] MEDS: SENNOSIDES/DOCUSATE SODIUM TAB PO SCH (08:11)
[2019-03-15] MEDS: PANTOPRAZOLE SODIUM 40 MG TAB PO SCH (08:12)
[2019-03-15] MEDS: ASPIRIN EC 81 MG TAB PO SCH (08:12)
[2019-03-15] MEDS: NAPROXEN SODIUM 220 MG TAB PO SCH (08:12)
--- NOTE | 2019-03-15 09:02 | HOSPPROG ---
Hospitalist Progress Note Assessment/Plan: 43 year old female with hip dysplasia admitted for STEVEN. *Hip dysplasia -s/p STEVEN- *blurred vision -has a scopolamine patch in place -removed -resolved *anemia -post op *Hypotension- asymptomatic *Prophylaxis- asa per ortho *plan:dc today Subjective: Marisa is feeling well, ready to go home. Objective: Vital Signs Temp Pulse Resp BP Pulse Ox 36.9 C 75 16 96/57 L 95 03/15/19 07:21 03/15/19 07:21 03/15/19 07:21 03/15/19 07:21 03/15/19 07:21 Laboratory Results 03/14/19 04:33 03/12/19 04:49 03/14/19 03/15/19 03/16/19 05:59 05:59 05:59 Intake Total 1850 500 Balance 1850 500 - Physical Exam Constitutional: no apparent distress, appears nourished, not in pain Eyes: PERRL Ears, Nose, Mouth, Throat: hearing normal Respiratory: no respiratory distress Skin: warm, other (right upper thigh, hip w some swelling) Neurologic: AAOx3 Psychiatric: interacting appropriately ICD10 Worksheet Patient Problems: Problems Problem Status Onset Hip dysplasia Acute Hip dysplasia Acute
--- NOTE | 2019-03-15 10:20 | ASMTDCNOTE ---
Case Management Discharge Discharge Order Complete? Answers: Yes Patient to Obtain Answers: Independently Medications Transportation Arranged Answers: Family/Friends Family Notified Answers: Yes Notes: , Peter Discharge Comments Notes: Patient is discharging home today independently with outpatient PT follow up. No further needs. Date Signed: 03/15/2019 10:19 AM Electronically Signed By:Cyndee Guerin LCSW
--- NOTE | 2019-03-15 10:24 | ASMTLACE ---
LACE Length of stay for Answers: 4-6 days current admission Acuity / Level of Answers: Yes Care: Did the patient have an inpatient admission? Comorbidities - select Answers: Opioid dependence all that apply / Chronic pain # of Emergency department Answers: 0 visits in the last 6 months Score: 11 Date Signed: 03/15/2019 10:23 AM Electronically Signed By:Cyndee Guerin LCSW
--- NOTE | 2019-03-15 11:38 | SOAPPROG ---
SOAP Progress Note Assessment/Plan: Assessment: 43 yo F POD#4 s/p R STEVEN, doing well post-operatively and stable for d/c today. Plan: PO pain control ASA, SCDs for DVT ppx NWB RLE, PT/OT Pelvis XR cleared d/c today 03/12/19 17:15 03/15/19 11:37 Subjective: Pt feels well, ready for discharge today. No CP/SOB/N/V. Objective: Vital Signs Temp Pulse Resp BP Pulse Ox 36.9 C 75 16 96/57 L 95 03/15/19 07:21 03/15/19 07:21 03/15/19 07:21 03/15/19 07:21 03/15/19 07:21 Laboratory Results 03/14/19 04:33 03/12/19 04:49 03/14/19 03/15/19 03/16/19 05:59 05:59 05:59 Intake Total 1850 500 Balance 1850 500 Gen: NAD R hip dressings c/d/i Minimal lateral thigh numbness in LFCN distribution 5/5 TA, GSC, EHL SILT throughout foot ICD10 Worksheet Patient Problems: Problems Problem Status Onset Hip dysplasia Acute Hip dysplasia Acute - ICD10 Problem Qualifiers (1) Hip dysplasia
--- NOTE | 2019-03-21 08:57 | GDS ---
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 Intraoperatively, spinal and spinal and Laguna catheters were placed. She was well pain managed po stoperatively with spinal [employer] and oral analgesics. She was up with physical therapy and occupational therapy. Laguna catheter was discontinued by her 2nd postoperative day. Pelvis x-rays on her 3rd po stoperative day showed good bone and screw fixation and she was discharged on her 4th postoperative d ay in good condition. She will go home with SCDs to be worn 24 hours a day 7 days a week for 2 weeks and thereafter only at night for another week. She will be taking 81 mg baby aspirin daily for 1 mo nt. Both of these for DVT prophylaxis. She will finish the naproxen prescription and be nonweightb earing on her right lower extremity for 2 weeks until she is seen in the clinic for her 2-week postop visit. /[id number]/MODL
== END 2019-03-15 12:56 | disposition home or self-care (01) | DRG 516 ==
LOC: F3N 06:04
PROVIDERS: ADMIT Orthopaedic Surgery Sports Medicine; ATTEND Orthopaedic Surgery Sports Medicine
PROC: 0QS404Z Reposition Right Acetabulum with Internal Fixation Device, Open Approach (ICD-10-PCS; principal; 2019-03-11 07:15)
DX: Q65.89 Other specified congenital deformities of hip (principal); D62 Acute posthemorrhagic anemia; I95.1 Orthostatic hypotension; Z68.32 Body mass index [BMI] 32.0-32.9, adult
CPT/HCPCS: 97116-GP; 97161-GP; 97166-GO; 97535-GO; C1713; J0690; J1100; J1170; J2274; J2370; J2405; J2704; J3010